=== PATIENT | female | born 1970 | race Caucasian/White ===

== ENCOUNTER 2025-06-23 13:58 | Emergency (ER) | payer OTHER ==
[2025-06-23 14:15] VITALS: TEMP 98.2
[2025-06-23 15:09] VITALS: BP 126/77; O2SAT 97
--- NOTE | 2025-06-23 15:14 | ERPHSYRPT ---
- History of Present Illness Time Seen by Provider: 06/23/25 14:20 Source: patient Exam Limitations: no limitations Patient Subjective Stated Complaint: patient states she thinks there's somethng wrong with her left arm. Triage Nursing Assessment: patient walked into ED by self, she says she is concerned because is having pains in her arm ever sense she got blood drawn and an IV. Patient is alert and oriented x4, pulses equal bilateral radius, lung sounds clear, patient left arm has no open area skin is warm dry and itnact, no swelling or redness noted. Physician History: Patient is a 54-year-old female history of seizure TIA hypertension hyperlipidemia anxiety current smoker presents to our ED for evaluation of a tender vein at her left arm antecubital area. Patient states symptoms have been ongoing for approximately 4 months. The area is tender. No trauma. Patient states pain started after an IV blood draw back in February 2025. No chest pain or shortness of breath. No nausea vomiting or diaphoresis. Symptoms are mild to moderate in intensity. Pain only when she palpates. Patient declined pain medication. Patient otherwise feels well. She voices no other complaints or concerns at this time. Portions of this note were created with voice recognition technology. There may be grammatical, spelling, punctuation or sound alike errors Timing/Duration: today Severity: moderate Modifying Factors: Improves With: other (Palpation) Associated Symptoms: denies symptoms Allergies/Adverse Reactions: Fish Containing Products Allergy (Severe, Verified 06/23/25 14:04) swelling and hives aspirin Adverse Reaction (Severe, Verified 06/23/25 14:04) vomit blood Home Medications: No Reportable Medications [No Reported Medications] 03/05/25 [History] Hx Tetanus, Diphtheria Vaccination/Date Given: No Hx Influenza Vaccination/Date Given: No Hx Pneumococcal Vaccination/Date Given: No Immunizations Up to Date: No Travel Risk - International Travel Have you traveled outside of the country in past 3 weeks: No - Emerging Infectious Disease Are you exhibiting symptoms associated with any current EIDs: No - Review of Systems All Other Systems: Reviewed and Negative - Past Medical History Pertinent Past Medical History: Yes Neurological History: Seizures, TIA ENT History: No Pertinent History Cardiac History: High Cholesterol, Hypertension Respiratory History: No Pertinent History Endocrine Medical History: Hypoglycemia Musculoskeletal History: No Pertinent History GI Medical History: No Pertinent History History: No Pertinent History Psycho-Social History: Anxiety Female Reproductive Disorders: No Pertinent History - Past Surgical History Past Surgical History: Yes Other Surgical History: tubal. left knee - Female History Hx Last Menstrual Period: unknown Hx Now: No - Social History Smoking Status: Current every day smoker How long have you smoked: years Exposure to second hand smoke: Yes Drug Use: none - Social Determinants of Health Will the patient participate in the screening: Declined to provide - Nursing Vital Signs Nursing Vital Signs: Initial Vital Signs Temperature 98.2 F 06/23/25 13:58 Pulse Rate 91 H 06/23/25 13:58 Respiratory Rate 14 06/23/25 13:58 Blood Pressure 121/81 06/23/25 13:58 O2 Sat by Pulse Oximetry 96 06/23/25 13:58 Pain Scale Pain Intensity 4 - Physical Exam General Appearance: no apparent distress, alert Ears, Nose, Throat Exam: normal ENT inspection, pharynx normal, moist mucous membranes Neck Exam: normal inspection, full range of motion Respiratory Exam: normal breath sounds, lungs clear, airway intact, No r espiratory distress Cardiovascular Exam: regular rate/rhythm, normal peripheral pulses Gastrointestinal/Abdomen Exam: soft, normal bowel sounds, No tenderness, No mass Back Exam: normal inspection, normal range of motion, No CVA tenderness, No vertebral tenderness Extremity Exam: normal inspection, normal range of motion, pelvis stable, tenderness (There is tenderness along the left upper extremity antecubital vein.), other (Tenderness to palpation at antecubital vein. The vein feels inflamed. Point tenderness at this location. The involved extremities neurovasc intact distally compartments are soft cap refill less than 2 seconds. Overlying soft tissue intact) Neurologic Exam: alert, oriented x 3, cooperative, normal mood/affect, sensation nml, No motor deficits Skin Exam: normal color, warm, dry, No rash Lymphatic Exam: No adenopathy SpO2 Interpretation: normal SpO2: 97 O2 Delivery: Room Air - Course Nursing assessment & vital signs reviewed: Yes - Radiology Ultrasound Exam Venous Upper Extremity Ultrasound: tele radiology report (Thrombophlebitis) Ordered Tests: Active Orders 24 hr Category Date Time Status VENOUS UNILAT/LIMITED EXTREMIT [US] Stat Exams 06/23/25 14:39 Taken - Progress Progress: improved Progress Note: Patient is a 54-year-old female history of seizure TIA hypertension hyperlipidemia anxiety current smoker presents to our ED for evaluation of a tender vein at her left arm antecubital area. Patient states symptoms have been ongoing for approximately 4 months. Physical exam reveals a tender antecubit al vein and left upper extremity. The involved extremities neurovasc intact distally compartments are soft cap refill less than 2 seconds. Radial pulse palpable. Overlying soft tissue intact. Ultrasound left upper extremity reveals a superficial thrombus. No DVT. Patient is unable to have aspirin/NSAIDs secondary to history of gastric ulcers. History obtained from patient Differential diagnosis includes thrombophlebitis, DVT, SVT, cellulitis, trauma I considered treating patient with a blood thinner such as fondaparinux however in light of patient's gastric ulcer I held off on a blood thinner. Consulted with patient's primary provider at 3:30 PM [facility] nurse practitioner. After extensive discussion we decided to manage patient's superficial thrombus conservatively with warm pack, limb elevation, compression therapy none of which she has tried since the onset of symptoms 4 months ago. Patient agrees to follow-up with her primary provider in a week's time to assess her progress and to assure that the superficial thrombus is not propagating. Patient understands the importance of follow-up. She agrees to follow-up as planned. Patient will call today to schedule an appointment. Portions of this note were created with voice recognition technology. There may be grammatical, spelling, punctuation or sound alike errors Complexity of problem addressed is moderate acute complicated. No critical care time. Complex of data reviewed and analyzed is extensive. Test ordered chest reviewed results analyzed and correlated clinically with history and physical exam. Management discussed with patient's primary care provider. Risk of complication and or risk of morbidity/mortality is low. Vital stable. Time spent to discharge patient is approximately 10 minutes. Plan of care established for shared decision making. No social determinants of health present to impede follow-up. Portions of this note were created with voice recognition technology. There may be grammatical, spelling, punctuation or sound alike errors 06/23/25 16:00 Counseled pt/family regarding: diagnosis, need for follow-up, rad results - Departure Departure Disposition: Home Clinical Impression: Thrombophlebitis, Superficial venous thrombosis of arm Condition: Stable Critical Care Time: No Referrals: AMY WYMAN NP [Primary Care Provider, UNKNOWN] - Follow up/PCP as directed Instructions: Superficial vein phlebitis and thrombosis Additional Instructions: Discharge/Care Plan DEXTER MARRUFO was seen on 06/23/25 in the Emergency Room. The patient was counseled regarding Diagnosis,Lab results, Imaging studies, need for follow up and when to return to the Emergency Room. Prescriptions given: Discharge Note I have spoken with the patient and/or caregivers. I have explained the patient's condition, diagnosis and treatment plan based on the information available to me at this time. I have answered the patient's and/or caregiver's questions and addressed any concerns. The patient and/or caregivers have as good understanding of the patient's diagnosis, condition and treatment plan as can be expected at this point. The vital signs have been stable. The patient's condition is stable and appropriate for discharge from the emergency department. The patient will pursue further outpatient evaluation with the primary care physician or other designated or consulting physician as outlined in the discharge instructions. The patient and/or caregivers are agreeable to this plan of care and follow-up instructions have been explained in detail. The patient and/or caregivers have received these instruction. The patient/and or caregivers are aware that any significant change in condition or worsening of symptoms should prompt an immediate return to this or the closest emergency department or call 911.
[2025-06-23 15:31] VITALS: PULSE 67; RESP 12
--- NOTE | 2025-06-23 16:24 | XRAY ---
Indication: Pain. Two-dimensional sonogram and color Doppler imaging major venous vessels left upper extremity performed. Comparison: None Elbow demonstrates subcutaneous vein up to 2 mm diameter with occluding thrombus. No thrombus seen in the remaining visualized left jugular, subclavian, axillary, basilic, brachial, cephalic, median cubital, radial, and ulnar veins. Veins demonstrate normal compressibility and normal venous waveforms. Impression: Superficial thrombophlebitis at elbow. Remaining left upper extremity negative for venous thrombosis.
== END 2025-06-23 15:59 | disposition home or self-care (01) ==
LOC: ED 13:58
DX: I82.612 Acute embolism and thrombosis of superficial veins of left upper extremity (principal); I80.8 Phlebitis and thrombophlebitis of other sites; M25.522 Pain in left elbow; I10 Essential (primary) hypertension; Z72.0 Tobacco use